=== PATIENT | female | born 1995 | race Caucasian/White ===

== ENCOUNTER 2022-09-02 03:41 | Inpatient (IN) | payer MEDICAID ==
[~2022-09-02] VITALS: Ht 160 cm; Wt 78.2 kg
[2022-09-02] VITALS (21 sets, daily range): BP systolic 105–130; BP diastolic 48–78; PULSE 62–124; TEMP 97.7–98.8
--- NOTE | 2022-09-02 04:25 | NUR ---
PT PRESENTED WITH SROM THAT OCCURED AT 0300. ALL VSS, NO VAGINAL BLEEDING AND NO REPORTED PN. PT REQUESTED REPEAT C/S BUT REQUESTS TO WAIT UNTIL CAN BE PRESENT AT 0700. NO HEALTH CONCERNS. APPLIED HEART MONITOR AND TOCO, SVE WITH CONSENT. PT STABLE. CALL LIGHT WITHIN REACH.
[2022-09-02 05:00] LABS: BASO % 0.3 % (0.0-2.0); EOS # 0.2 K/mm3 (0.0-0.7); EOS % 2.5 % (0.0-4.0); GRAN # 5.2 K/mm3 (1.4-6.5); GRAN % 68.7 % (42.2-75.2); HEMOGLOBIN 12.7 g/dl (12.5-16.0); LYMPH # 1.7 K/mm3 (1.2-3.4); LYMPH % 21.8 % (20.0-51.0); MEAN CELL VOLUME 88 fl (80.0-100.0); MEAN CORPUSCULAR HEMOGLOBIN 31 pg (27-31); MEAN CORPUSCULAR HGB CONC 35 g/dl (33.0-37.0); MEAN PLATELET VOLUME 10.2 fl (7.4-10.4); MONO # 0.5 K/mm3 (0.1-0.6); MONO % 6.2 % (1.7-9.3); PLATELET COUNT 204 K/mm3 (130-400); REDCELL DISTRIBUTION WIDTH-CV 12.8 % (11.5-14.5)
--- NOTE | 2022-09-02 06:00 | NUR ---
DR. BLOOD CALLED AT 0600 TO REPORT INTERMITTENT DECELS THAT RECOVER WITH SOME CTX. REPORTED POSITION CHANGE FOR INTERVENTION.
--- NOTE | 2022-09-02 06:33 | NUR ---
DR. BLOOD CALLED AT 0431 TO REPORT PT SROM AND HX OF REPEAT C/S. REPORTED PT HEMORRHAGE DURING LAST C/S AND ANXIETIES WITH SPINAL. FHT AND CTX PATTERN ALSO DISCUSSED. PT REQUESTED 0700 C/S SO HER CAN ATTEND. CALLED FOR 0730 REPEAT C/S.
--- NOTE | 2022-09-02 09:25 | NUR ---
Rests in bed, tearful. This nurse visits with patient. Ler her know that we would keep her updated on baby.
--- NOTE | 2022-09-02 09:40 | NUR ---
Assumed care of patient. Rests in bed, alert, pumping.
--- NOTE | 2022-09-02 10:30 | NUR ---
Rests in bed, alert. Repositioned patient in bed, pad changed and weighed. Fundus firm. Tylenol 1000 mg given as ordered and per request.
--- NOTE | 2022-09-02 13:30 | NUR ---
2580 THIS SONG WRITER ASSUMES CARE OF PATIENT FROM JASPREET SALCIDO RN.
[2022-09-03] MEDS ORDERED: IBU800 M1 PO (08:21)
[2022-09-03] MEDS ORDERED: ROXICODONE 55 MG/TAB PO (08:21)
[2022-09-03] MEDS ORDERED: TYLENOL 500MG500 MG PO (08:21)
--- NOTE | 2022-09-03 10:00 | NUR ---
DISCHARGE INSTRUCTIONS REVIEWED WITH PT AND PT'S SPOUSE REGARDING FOLLOW-UP APPOINTMENT, PAIN MANAGEMENT, MEDICATIONS, AND REASONS TO CALL PHYSICIAN. QUESTIONS INVITED AND ANSWERED. PT VERBALIZES UNDERSTANDING.
--- NOTE | 2022-09-03 10:27 | NUR ---
Initial visit; Patient indisposed, Material Flow Engineer spoke with her , offering congratulations and God's blessings for the of their son. He thanked Material Flow Engineer for stopping.
== END 2022-09-03 10:05 | disposition home or self-care (01) | DRG 788 ==
LOC: LDR 03:41 → LDRO 03:41 → OB 04:43 → LDR 04:43 → OB 12:52
PROVIDERS: Obstetrics & Gynecology; ADMIT Obstetrics & Gynecology
PROC: 10D00Z1 Extraction of Products of Conception, Low, Open Approach (ICD-10-PCS; principal; 2022-09-02)
DX: O34.211 Maternal care for low transverse scar from previous cesarean delivery (principal); O76 Abnormality in fetal heart rate and rhythm complicating labor and delivery; O42.913 Preterm premature rupture of membranes, unspecified as to length of time between rupture and onset of labor, third trimester; Z3A.36 36 weeks gestation of pregnancy; Z37.0 Single live birth
CPT/HCPCS: J0171; J0690; J0702; J1885; J2175; J2405; J2540; J2590; J7120